=== PATIENT | male | born 1965 | race Caucasian/White ===

== ENCOUNTER 2017-04-08 22:31 | Emergency (ER) | payer OTHER ==
[~2017-04-08] VITALS: Ht 180.3 cm; Wt 129.6 kg
--- NOTE | ~2017-04-08 | ECH ---
Transthoracic Echocardiography Report (TTE) Demographics Patient Name EDWARD ELIAS Date of Study 04/09/2017 Patient Number [id number] Visit Number [id number] Date of 1965 Room Number 405 Accession Number [id number] Gender Male Age 51 year(s) Referring Fatimah Fishman Supervisor Baking Jennifer Franco Physician RDCS Physician Interpreting [facility] Wellness Coordinator Physician MD Supervising Ordering Physician Fatimah Fishman MD, MD/P Nurse Stress Bender Machine Conclusions Summary Technically adequate exam. The estimated left ventricular ejection fraction is 60%. The left atrium is mildly dilated by LA volume index measurement. Informed consent was obtained, bubble study was done, there is no evidence for a PFO or ASD. No significant valvular abnormalities. Procedure Type of Study TTE procedure:Echo Complete SF. Procedure Date Date: 04/09/2017 Start: 10:05 AM Technical Quality: Adequate visualization Indications:Hypertension. Additional Indications:Left sided weakness Appropriate Use Criteria: 9 Height: 71 inches Weight: 286 pounds BSA: 2.46 m Rhythm: NSR HR: 66 bpm BP: 151/82 mmHg M-Mode/2D Measurements LV Diastolic Dimension: 5.78 cm LV Systolic Dimension: 3.79 cm LV Septum Diastolic: 0.89 cm LV PW Diastolic: 1.06 cm AO Root Dimension: 3.65 cm Cardiac Output: 4.78 l/min LA Dimension: 4.39 cm Cardiac Index: 1.94 l/min*m RV Diastolic Dimension: 3.53 cm LA volume index: 36 ml/m LVOT: 2.19 cm LVOT VTI: 19.23 cm RV Base: 3.6 cm LV Stroke volume: 72.4 ml RV Mid: 2.6 cm LV Stroke volume index: 29.43 ml/m TAPSE: 3.7 cm TDI-S': 16 cm/s Doppler Measurements AV Peak Velocity: 1.4 m/s MV Peak E-Wave: 0.89 m/s AV Peak Gradient: 7.84 mmHg MV Peak A-Wave: 0.77 m/s AV Mean Gradient: 4.42 mmHg MV E/A Ratio: 1.17 LVOT Peak Velocity: 0.88 m/s MV P1/2t: 83.3 msec AV Area (Continuity):3.24 cm MV Deceleration Time: 256.9 msec MV Area (PHT): 2.64 cm PV Peak Velocity: 0.97 m/s E' Septal Velocity: 0.09 m/s PV Peak Gradient: 3.78 mmHg E' Lateral Velocity: 0.08 m/s A' Septal Velocity: 0.09 m/s A' Lateral Velocity: 0.1 m/s RA Area: 17.92 cm Findings Left Ventricle Normal left ventricle size and function. Diastolic assessment reveals normal relaxation. Right Ventricle Normal right ventricle structure and function. Left Atrium The left atrium is mildly dilated by LA volume index measurement. Informed consent was obtained, bubble study was done, there is no evidence for a PFO or ASD. Right Atrium Normal right atrial size. Mitral Valve Normal mitral valve structure and function. Trivial mitral regurgitation by color Doppler. Aortic Valve Normal aortic valve structure and function. Tricuspid Valve Normal tricuspid valve structure and function. Pulmonic Valve The pulmonic valve is not well visualized. Pericardial Effusion No evidence of pericardial effusion. Miscellaneous Visualized portions of the aortic root and ascending aorta appear normal in size. Pleural Effusion No evidence of pleural effusion. Signature
[2017-04-10] MEDS ORDERED: COZAAR DPS50 MG PO (11:07)
[2017-04-10] MEDS ORDERED: PRILOSEC DPS20 MG PO (11:07)
[2017-04-10] MEDS ORDERED: [UNRECOGNIZED DRUG - OTHER] PO (11:07)
[2017-04-10] MEDS ORDERED: ASA325 MG PO (11:07)
[2017-04-10] MEDS ORDERED: CITALOPRAM HBR20 MG PO (11:07)
--- NOTE | 2017-04-11 01:36 | ER ---
ADMIT: 04/09/2017 RM/LOC: 405 [facility] MR#: [id number] 2620 [facility] [address] [place] [id number] [place] [address] Emergency Room Report SEX: M AGE: 51 : 1965 DATE: 04/08/2017 ADDENDUM: See T-sheet for complete H and P. A 51-year-old male, who has a diagnosis of hypertension, GERD, comes in complaining of left arm and left-sided face numbness. These symptoms began about 9 hours prior to arrival with the numbness in the arm first. He then developed numbness in the left side of his face. The numbness in the arm is essentially completely resolved by the time he got to the ER, but he is still having some left-sided facial numbness. We did do our stroke routine on the patient, and CT head was negative. CBC was normal. Chemistries are normal other than a slightly low potassium at 3.4. Bedside glucose was 131. He did get a head CT, which shows nothing acute, and his EKG shows sinus rhythm with a rate of 69. No signs of ST-elevation or acute PA or other abnormalities. He did get an aspirin while he was in the Emergency Department. His stroke scale for me was 1, which he flagged positive on the sensory loss. I had originally thought we could possibly get the patient home, but towards the end of his stay, he states that he had some return of some mild numbness in his left hand with continued numbness in his face. So, I contacted Dr. Sheikh, who is on for the patient's primary care physician, Dr. Sheridan. We plan on bringing the patient in for further workup. DIAGNOSES: 1. Possible cerebrovascular accident. 2. Left-sided facial numbness. Amador Blank MD/ vaishali JOB #: [id number] CC: Ilda Sheridan MD, Attending Physician Ilda Sheridan MD, Family Physician
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
[2017-08-15] MEDS ORDERED: CELEXA DPS20 MG PO (13:46)
[2017-08-15] MEDS ORDERED: [UNRECOGNIZED DRUG - OTHER] PO (13:47)
[2017-08-15] MEDS ORDERED: LOSARTAN-HCTZ1 EAC2 PO (13:47)
[2017-08-15] MEDS ORDERED: PRILOSEC DPS20 MG PO (13:47)
[2017-08-15] MEDS ORDERED: ULTRAM DPS50 MG PO (13:47)
[2017-08-15] MEDS ORDERED: NORCO 5-325 TA1 EACH PO (13:48)
[2017-08-15] MEDS ORDERED: PEPCID DPS20 MG PO (13:48)
== END 2017-04-09 16:40 | disposition home or self-care (01) ==
LOC: ER 22:31 → 4PCU 04-09 00:22
PROVIDERS: ADMIT Internal Medicine
DX: G45.9 Transient cerebral ischemic attack, unspecified (principal); K21.9 Gastro-esophageal reflux disease without esophagitis; F32.9 Major depressive disorder, single episode, unspecified; I10 Essential (primary) hypertension; F17.210 Nicotine dependence, cigarettes, uncomplicated; R01.1 Cardiac murmur, unspecified; Z79.899 Other long term (current) drug therapy; Z90.49 Acquired absence of other specified parts of digestive tract